=== PATIENT | male | born 1985 | race African-American/Black ===

== ENCOUNTER 2018-06-02 16:18 | Emergency (ER) | payer OTHER ==
[2018-06-02] MEDS ORDERED: Sodium Chloride 0.9% 10 ML Syringe FLUSH PRN (17:36)
[2018-06-02] MEDS ORDERED: HYDROmorphone 0.5 MG/0.5 ML Syringe IVPUSH ONE (17:36)
[2018-06-02] MEDS ORDERED: Sodium Chloride 0.9% 1,000 ML IV ONE (17:36)
--- NOTE | 2018-06-02 17:41 | EDM.PDOC ---
ED HPI GENERAL MEDICAL PROBLEM - General Chief Complaint: Respiratory Problem Stated Complaint: CHEST PAIN/SOB Time Seen by Provider: 06/02/18 17:34 Source of Information: Reports: Patient History Limitations: Reports: No Limitations - History of Present Illness INITIAL COMMENTS - FREE TEXT/NARRATIVE: Patient is a 33-year-old male presents ED complaining of chest pain, hemoptysis , shortness of breath with exertion, and cold-like symptoms for the past few days. States over the past few days he has been coughing up blood. Denies any bloody coming from his nose. He is concerned that he may have a PE. At this time although he is on Xarelto. He denies any TB exposure or known history of TB. Denies any fever, chills, recent weight loss, abdominal pain, nausea vomiting, diaphoresis, or any additional complaints. He has not had any additional testing to why he developed PE. First diagnosis of PE was 6 months ago. He has been taking his medication religiously. Of note he's also has some sinus congestion and runny nose. Denies any sore throat. He does not smoke. Alcohol use none. Recreational drug use includes marijuana. He is on narcotics for generalized body discomfort secondary to take in the Xarelto. 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 He has no history of sickle cell. Denies any swelling or tenderness to his lower extremities. No recent long travel or hospitalization. He denies any history cancer. Chest Pain Score (Numeric/FACES): 2 - Related Data Allergies Allergy/AdvReac Type Severity Reaction Status Date / Time No Known Allergies Allergy Verified 06/02/18 17:00 Home Meds: Home Meds Gabapentin [Neurontin] 06/02/18 [History] Hydrocodone/Acetaminophen [Hydrocodon-Acetaminophen 5-325] 06/02/18 [History] Rivaroxaban [Xarelto] 20 mg PO 06/02/18 [History] Past Medical History Cardiovascular History: Reports: Blood Clots/VTE/DVT Respiratory History: Reports: PE Social & Family History - Tobacco Use Smoking Status *Q: Current Every Day Smoker Years of Tobacco use: 15 Packs/Tins Daily: 0.1 ED ROS GENERAL - Review of Systems Review Of Systems: ROS reveals no pertinent complaints other than HPI. ED EXAM, GENERAL - Physical Exam Exam: See Below Exam Limited By: No Limitations General Appearance: Alert, WD/WN, No Apparent Distress Ears: Hearing Grossly Normal Nose: Normal Inspection, Normal Mucosa, No Blood Throat/Mouth: Normal Inspection, Normal Oropharynx, Normal Voice Head: Atraumatic, Normocephalic Neck: Normal Inspection, Supple, Non-Tender, Full Range of Motion Respiratory/Chest: No Respiratory Distress, Lungs Clear, Normal Breath Sounds, No Accessory Muscle Use, Other (tenderness to the anterior chest with palpation. ) Cardiovascular: Normal Peripheral Pulses, Regular Rate, Rhythm, No Murmur Peripheral Pulses: 2+: Radial (L), Radial (R) GI/Abdominal: Normal Bowel Sounds, Soft, Non-Tender, No Organomegaly, No Distention Back Exam: Normal Inspection. No: CVA Tenderness (L), CVA Tenderness (R) Extremities: Normal Inspection, Normal Range of Motion, Non-Tender, No Pedal Edema Neurological: Alert, Oriented, CN II-XII Intact, Normal Cognition, Normal Gait, No Motor/Sensory Deficits Psychiatric: Normal Affect, Normal Mood Skin Exam: Warm, Dry, Intact, Normal Color, No Rash Course - Vital Signs Last Recorded V/S: Last Vital Signs Temp 98.5 F 06/02/18 17:01 Pulse 79 06/02/18 17:01 Resp 18 06/02/18 17:01 BP 127/75 06/02/18 17:01 Pulse Ox 97 06/02/18 17:01 - Orders/Labs/Meds Orders: Active Orders 24 hr Category Date Time Status EKG Documentation Completion [RC] STAT Care 06/02/18 17:34 Active Peripheral IV Care [RC] . DIRECTED Care 06/02/18 17:36 Active Peripheral IV Insertion Adult [OM.PC] Routine Oth 06/02/18 17:36 Ordered Labs: Laboratory Tests 06/02/18 06/02/18 06/02/18 Range/Units 18:02 18:02 18:02 WBC 9.54 H (4.23-9.07) K/mm3 RBC 4.54 L (4.63-6.08) M/mm3 Hgb 14.2 (13.7-17.5) gm/L Hct 42.6 (40.1-51.0) % MCV 93.8 H (79.0-92.2) fl MCH 31.3 (25.7-32.2) pg MCHC 33.3 (32.2-35.5) g/dl RDW Std Deviation 47.4 H (35.1-43.9) fL Plt Count 281 (163-337) K/mm3 MPV 9.6 (9.4-12.3) fl Neutrophils % (Manual) 59 (40-60) % Band Neutrophils % 0 (0-10) % Lymphocytes % (Manual) 30 (20-40) % Atypical Lymphs % 0 % Monocytes % (Manual) 10 (2-10) % Eosinophils % (Manual) 1 (0.8-7.0) % Basophils % (Manual) 0 L (0.2-1.2) Platelet Estimate Adequate RBC Morph Comment Normal PT 10.9 (9.5-12.1) SECONDS INR 1.00 APTT 26 (24-31) SECONDS Sodium 141 (136-145) mEq/L Potassium 4.3 (3.5-5.1) mEq/L Chloride 107 (98-107) mEq/L Carbon Dioxide 25 (21-32) mEq/L Anion Gap 13.3 (5-15) BUN 18 (7-18) mg/dL Creatinine 1.3 (0.7-1.3) mg/dL Est Cr Clr Drug Dosing 87.05 mL/min Estimated GFR (MDRD) > 60 (>60) mL/min BUN/Creatinine Ratio 13.8 L (14-18) Glucose 94 (74-106) mg/dL Calcium 9.0 (8.5-10.1) mg/dL Total Bilirubin 0.3 (0.2-1.0) mg/dL AST 14 L (15-37) U/L ALT 31 (16-63) U/L Alkaline Phosphatase 56 (46-116) U/L Troponin I < 0.017 (0.00-0.056) ng/mL C-Reactive Protein < 0.2 (<1.0) mg/dL Total Protein 6.8 (6.4-8.2) g/dl Albumin 3.6 (3.4-5.0) g/dl Globulin 3.2 gm/dL Albumin/Globulin Ratio 1.1 (1-2) Meds: Medications Discontinued Medications Generic Name Dose Route Start Last Admin Trade Name Freq PRN Reason Stop Dose Admin Hydromorphone HCl 0.5 mg 06/02/18 17:36 06/02/18 18:06 Dilaudid IVPUSH 06/02/18 17:37 0.5 mg ONETIME ONE Administration Sodium Chloride 1,000 mls @ 250 mls/hr 06/02/18 17:36 06/02/18 18:05 Normal Saline IV 06/02/18 21:35 250 mls/hr ONETIME ONE Administration Sodium Chloride 100 mls @ 80 mls/hr 06/02/18 18:00 06/02/18 18:18 Normal Saline IV 80 mls/hr ASDIRECTED KIRK Administration Iopamidol 100 ml 06/02/18 17:54 06/02/18 18:19 Isovue-370 (76%) IV 06/02/18 17:55 100 ml ONETIME ONE Administration Sodium Chloride 10 ml 06/02/18 17:36 06/02/18 18:07 Saline Flush FLUSH 10 ml ASDIRECTED PRN Administration Keep Vein Open - Re-Assessments/Exams Free Text/Narrative Re-Assessment/Exam: Vital signs are stable. Patient is not hypoxic. He does carry a history of PE and is currently on Xarelto. Complains of shortness of breath with exertion, chest pain, and hemoptysis. IV will be established with Dilaudid 0.5 mg IVP. Normal saline IV fluids and been started as well. Initial labs will include CBC, chem 14, CRP, click studies , troponin. EKG has been ordered. CTA of the chest PE protocol has been ordered as well. 06/02/18 19:13 Labs reviewed. CBC was essentially normal. Chemistry panel was essentially normal as well. Troponin less than 0.017. CRP 0.2. EKG indicated sinus rhythm at a rate of 74. Diffuse T-wave flattening repolarization abnormalities in V3 and V6. T-wave inversion in leads 3 and aVF cannot rule out ischemia. CTA of the chest impression: No findings of pulmonary embolism. Nothing acute is appreciated on CT study of the chest performed as a pulmonary angiogram protocol. Patient's vital signs have remained stable throughout his ED visit. I discussed return precautions with the patient. He will establish medical care here locally and be evaluated in the next 3-5 days. Patient had no further questions or concern and agreed with plan. Departure - Departure Time of Disposition: 19:14 Disposition: Home, Self-Care 01 Condition: Good Clinical Impression: Hemoptysis, unspecified, SOB (shortness of breath) on exertion - Discharge Information Instructions: Hemoptysis, Shortness of Breath, Adult Referrals: PCP,None [Primary Care Provider] - Forms: ED Department Discharge, ED Return to Work/School Form Additional Instructions: Please establish medical care with a local primary care provider. Schedule a appointment to be evaluated in next 3-5 days. CTA of the chest came back negative with no findings concerning for a PE. Continue taking all your home medications as prescribed. Return to the ED if you develop any new or worsening symptoms. No driving this evening since receiving a sedative medication. - My Orders Last 24 Hours: My Active Orders 06/02/18 17:34 EKG Documentation Completion [RC] STAT 06/02/18 17:36 Peripheral IV Care [RC] . DIRECTED Peripheral IV Insertion Adult [OM.PC] Routine - Assessment/Plan Last 24 Hours: My Active Orders 06/02/18 17:34 EKG Documentation Completion [RC] STAT 06/02/18 17:36 Peripheral IV Care [RC] . DIRECTED Peripheral IV Insertion Adult [OM.PC] Routine
[2018-06-02] MEDS ORDERED: Iopamidol 755 Mg/ML 200 ML Bottle IV ONE (17:54)
[2018-06-02] MEDS ORDERED: Sodium Chloride 0.9% 100 ML IV SCH (18:00)
--- NOTE | 2018-06-02 18:45 | CT ---
CT chest Technique: Multiple axial sections through the chest were obtained. Intravenous contrast was utilized. Study has been performed as a pulmonary angiogram protocol. Findings: Pulmonary arteries are well opacified. No filling defects are seen to indicate a pulmonary embolism. Mediastinum and hilar regions show no adenopathy or mass. No pericardial effusion is seen. Small portion of the visualized upper abdominal structures are within normal limits. Lungs are clear. No acute parenchymal densities are seen. No pleural effusions are seen. Bone window settings were reviewed which shows no acute osseous abnormality. Impression: 1. No findings of pulmonary embolism. 2. Nothing acute is appreciated on CT study of the chest performed as a pulmonary angiogram protocol. Diagnostic code #1
== END 2018-06-02 19:25 | disposition home or self-care (01) ==
LOC: JD.ED 16:18
DX: R04.2 Hemoptysis (principal); R06.02 Shortness of breath; F17.210 Nicotine dependence, cigarettes, uncomplicated; Z79.01 Long term (current) use of anticoagulants
CPT/HCPCS: 36415; 71275; 80053; 84484; 85007; 85027; 85610; 85730; 86140; 93005; 96361; 96374; 99284; J1170; J7030; J7040; Q9967

== ENCOUNTER 2018-07-12 19:32 | Emergency (ER) | payer SELFPAY ==
--- NOTE | 2018-07-12 20:29 | EDM.PDOC ---
ED HPI GENERAL MEDICAL PROBLEM - General Chief Complaint: Neck Problem Stated Complaint: PAIN IN NECK SPINE AND LEFT ARM TUMOR IN NECK Time Seen by Provider: 07/12/18 20:05 Source of Information: Reports: Patient History Limitations: Reports: No Limitations - History of Present Illness INITIAL COMMENTS - FREE TEXT/NARRATIVE: Yanleis is a 33-year-old male. He comes tonight because he is having pain in his neck and down his left arm. 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 When I ask him about this tumor he says he's had it for 16 or 17 years which means it started as a teenager and he's had no significant workup. All he states is that it is benign but he has no idea what it is called. To confuse the issue he has a history of pulmonary emboli and this was at least a year ago and he was seen 3 months ago because he was still on Xeralto and he was coughing up some blood at the time. He had a CT angiogram here in this ER at the time that was negative. Getting back to his tumor he says it flares up every so often and normally he need something to kind of eased the pain up but it doesn't really stop him or keep him from working. The patient is requesting something to ease up the pain. He denies any dysfunction of his neck or his left upper extremity despite the pain. He denies any other acute symptoms. Neck Pain Score (Numeric/FACES): 10 - Related Data Allergies Allergy/AdvReac Type Severity Reaction Status Date / Time No Known Allergies Allergy Verified 07/12/18 19:54 Home Meds: Home Meds Gabapentin [Neurontin] 1 dose PO ASDIRECTED PRN 06/02/18 [History] Naproxen 375 mg PO Q8H PRN #20 tablet 07/12/18 [Rx] Past Medical History Cardiovascular History: Reports: Blood Clots/VTE/DVT Respiratory History: Reports: PE Social & Family History - Tobacco Use Smoking Status *Q: Current Every Day Smoker Years of Tobacco use: 20 Packs/Tins Daily: 0.5 - Caffeine Use Caffeine Use: Reports: Coffee, Soda, Tea ED ROS GENERAL - Review of Systems Review Of Systems: See Below Constitutional: Denies: Fever, Chills HEENT: Reports: No Symptoms Respiratory: Reports: No Symptoms Cardiovascular: Reports: No Symptoms Endocrine: Reports: No Symptoms GI/Abdominal: Reports: No Symptoms : Reports: No Symptoms Musculoskeletal: Reports: Other (As per history of present illness) Skin: Reports: No Symptoms Neurological: Reports: Other (As per history of present illness) Psychiatric: Reports: No Symptoms Hematologic/Lymphatic: Reports: No Symptoms ED EXAM, UPPER BACK/NECK PAIN - Physical Exam Exam: See Below Exam Limited By: No Limitations General Appearance: Alert, WD/WN, No Apparent Distress, Other (Patient states that his pain is 10/10 as he lays on the bed with his arms over his head, gesturing with his left arm as he describes was going on and then sitting up in bed with no difficulty and in obvious no distress) Eye Exam: Bilateral Eye: Normal Inspection Ears Exam: Normal External Exam Nose Exam: Normal Inspection Throat/Mouth Exam: Normal Inspection, Normal Lips, Normal Voice, No Airway Compromise Head Exam: Normocephalic Neck Exam: Non-Tender, Full Range of Motion, Normal Alignment, Normal Inspection , Other (He points to his neck which is in the lower cervical upper thoracic area and points to a bump stating this is the tumor, when I palpated he doesn't act like it is painful in fact he doesn't act like anything is going on, it feels like a lipoma but I don't feel any hard object or lump to suggest a tumor other than a fatty tumor. He has full range of motion of his neck.). No: Muscle Spasm Cardiovascular/Respiratory: Regular Rate, Rhythm. No: Murmur Back Exam: Normal Inspection, Full Range of Motion Extremities: Normal Inspection, Normal Range of Motion Neurologic: No Motor/Sensory Deficits, Other (He states he gets numbness and tingling in his ring and little finger of the left hand but he denies any dysfunction or decrease in strength in that left upper extremity, he is a somewhat muscular individual and there is no asymmetry in his muscular development compared to the right arm.) Psychiatric: Normal Affect, Normal Mood Skin Exam: Normal Color, Warm/Dry Course - Vital Signs Last Recorded V/S: Last Vital Signs Temp 97.4 F 07/12/18 19:53 Pulse 85 07/12/18 19:53 Resp 18 07/12/18 19:53 BP 138/85 07/12/18 19:53 Pulse Ox 95 07/12/18 19:53 - Re-Assessments/Exams Free Text/Narrative Re-Assessment/Exam: 07/12/18 20:32 I looked the patient up under the [place] prescription monitoring and looked in [place] and he did until March 2018 received for about 5 months 60 hydrocodone a month. He has not received any additional hydrocodone since he moved to [place]. I explained to the patient that I do not give narcotics for this kind of pain but I'll be happy to give him a shot to help and prescribed some medication that hopefully will help with these symptoms. The patient states he is not looking for narcotics and I think that's good. 07/12/18 20:34 I am going to refer him to a family physician here in town so they can really figure out what this tumor might be or at least what his history might be. Departure - Departure Time of Disposition: 20:49 Disposition: Home, Self-Care 01 Condition: Good Clinical Impression: Cervical radiculopathy at C8, Cervical pain - Discharge Information *PRESCRIPTION DRUG MONITORING PROGRAM REVIEWED*: Yes *COPY OF PRESCRIPTION DRUG MONITORING REPORT IN PATIENT JIMBO: Yes Prescriptions: Naproxen 375 mg PO Q8H PRN #20 tablet PRN Reason: Pain Instructions: How to Clean a Tracheostomy Tube, Adult, [id number] Referrals: Thao Matos PA [Physician Plastic Tile Setter] - Additional Instructions: Follow-up with the provider that I have suggested for workup of this tumor in your neck so we can determine what it is and whether it's actually pinching nerves in your neck or if you have a possible herniated disc in your neck causing the symptoms. Take the medication for pain as needed and make sure you take food with it, if the symptoms markedly worsen the sure to follow up with that provider, return to the ER if needed
[2018-07-12] MEDS ORDERED: Ketorolac 60 MG/2 ML SDV IM ONE (20:48)
== END 2018-07-12 21:05 | disposition home or self-care (01) ==
LOC: JD.ED 19:32
DX: M54.12 Radiculopathy, cervical region (principal); F17.210 Nicotine dependence, cigarettes, uncomplicated
CPT/HCPCS: 99283; J1885; 99284

== ENCOUNTER 2018-07-14 15:34 | Emergency (ER) | payer SELFPAY ==
[2018-07-14] MEDS: Sodium Chloride 0.9% 10 ML Syringe FLUSH PRN ×2 (16:28→16:44)
[2018-07-14] MEDS ORDERED: Iopamidol 755 Mg/ML 200 ML Bottle IV ONE (16:33)
--- NOTE | 2018-07-14 17:01 | CT ---
CT neck Technique: Multiple axial sections were obtained through the neck. Intravenous contrast was utilized. Comparison: No previous neck study. Findings: Visualized sinuses are clear. Parotid salivary glands and submandibular salivary glands are within normal limits. No adenopathy is seen. Paravertebral soft tissues are unremarkable. Prevertebral soft tissues are within normal limits. Slight disc space narrowing is noted within cervical spine at C4-5, C5-6 and C6-7. No neck mass is identified. Slight increased density within the subcutaneous fat is noted within the upper back which is most likely incidental. Visualized lung apices are clear. Thyroid gland shows no discrete nodule. Impression: 1. Slight disc space narrowing within the cervical spine. 2. Mild increased density within the subcutaneous fat of the upper back which is most likely incidental. 3. CT study of the neck is otherwise unremarkable. No neck mass is seen. Diagnostic code #2
--- NOTE | 2018-07-14 17:13 | EDM.PDOC ---
ED HPI GENERAL MEDICAL PROBLEM - General Chief Complaint: Neck Problem Stated Complaint: NECK PAIN Time Seen by Provider: 07/14/18 16:08 Source of Information: Reports: Patient History Limitations: Reports: No Limitations - History of Present Illness INITIAL COMMENTS - FREE TEXT/NARRATIVE: The patient presents with lower neck pain. 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 This has been around for 15 years but worse the past 4 days. He denies any injury. He says he had some pain shooting down his left arm and he had some tingling in his arms this morning when he woke up. He has no fever, chills, cough, congestion or runny nose. He has no chest pain or shortness of breath. He has no abdominal pain, nausea or vomiting. He has no other medical problems. He was here a few days ago for the same and given naprosyn and gabapentin. Onset: Gradual Duration: Day(s): (4) Location: Reports: Neck Quality: Reports: Sharp Severity: Moderate Improves with: Reports: None Worsens with: Reports: None Associated Symptoms: Reports: No Other Symptoms Bilateral Neck Pain Score (Numeric/FACES): 10 - Related Data Allergies Allergy/AdvReac Type Severity Reaction Status Date / Time No Known Allergies Allergy Verified 07/14/18 15:46 Home Meds: Home Meds Gabapentin [Neurontin] 1 dose PO ASDIRECTED PRN 06/02/18 [History] Naproxen 375 mg PO Q8H PRN #20 tablet 07/12/18 [Rx] Hydrocodone/Acetaminophen [Hydrocodon-Acetaminophen 5-325] 1 - 2 each PO Q6HR PRN #6 tablet 07/14/18 [Rx] Past Medical History Cardiovascular History: Reports: Blood Clots/VTE/DVT Other Cardiovascular History: bilaterals lungs, groin, L calf blood clots Respiratory History: Reports: PE Musculoskeletal History: Reports: Neck Pain, Chronic, Other (See Below) Other Musculoskeletal History: fatty tumor on neck - Infectious Disease History Infectious Disease History: Reports: Chicken Pox Social & Family History - Family History Family Medical History: Noncontributory - Tobacco Use Smoking Status *Q: Current Every Day Smoker Years of Tobacco use: 18 Packs/Tins Daily: 0.5 - Caffeine Use Caffeine Use: Reports: Tea - Recreational Drug Use Recreational Drug Use: Yes Recreational Drug Type: Reports: Marijuana/Hashish Recreational Drug Use Frequency: Daily ED ROS GENERAL - Review of Systems Review Of Systems: See Below Constitutional: Reports: No Symptoms HEENT: Reports: No Symptoms Respiratory: Reports: No Symptoms Cardiovascular: Reports: No Symptoms Endocrine: Reports: No Symptoms GI/Abdominal: Reports: No Symptoms : Reports: No Symptoms Musculoskeletal: Reports: Neck Pain Skin: Reports: No Symptoms Neurological: Reports: No Symptoms ED EXAM, UPPER BACK/NECK PAIN - Physical Exam Exam: See Below Exam Limited By: No Limitations General Appearance: Alert, No Apparent Distress Ears Exam: Normal External Exam Nose Exam: Normal Inspection Head Exam: Atraumatic, Normocephalic Neck Exam: Other (Pain upon palpation to the base of the posterior neck. Edema to C7 level. ) Cardiovascular/Respiratory: Regular Rate, Rhythm, No M/R/G, Normal Breath Sounds , No Respiratory Distress GI/Abdominal: Soft, Non-Tender, No Organomegaly, No Mass Back Exam: Normal Inspection Extremities: Normal Inspection Neurologic: No Motor/Sensory Deficits, Alert, Normal Mood/Affect, Oriented x 3 Course - Vital Signs Last Recorded V/S: Last Vital Signs Temp 98.4 F 07/14/18 15:42 Pulse 78 07/14/18 15:42 Resp 19 07/14/18 15:42 BP 160/83 H 07/14/18 15:42 Pulse Ox 97 07/14/18 15:42 - Orders/Labs/Meds Orders: Active Orders 24 hr Category Date Time Status Peripheral IV Care [RC] . DIRECTED Care 07/14/18 16:13 Active Sodium Chloride 0.9% [Saline Flush] Med 07/14/18 16:13 Active 10 ml FLUSH ASDIRECTED PRN Peripheral IV Insertion Adult [OM.PC] Routine Oth 07/14/18 16:13 Ordered Medication Orders Sodium Chloride (Saline Flush) 10 ml FLUSH ASDIRECTED PRN PRN Reason: Keep Vein Open Last Admin: 07/14/18 16:44 Dose: 10 ml Admin: 07/14/18 16:28 Dose: 10 ml Meds: Medications Generic Name Dose Route Start Last Admin Trade Name Freq PRN Reason Stop Dose Admin Sodium Chloride 10 ml 07/14/18 16:13 07/14/18 16:44 Saline Flush FLUSH 10 ml ASDIRECTED PRN Administration Keep Vein Open Discontinued Medications Generic Name Dose Route Start Last Admin Trade Name Norbertoq PRN Reason Stop Dose Admin Iopamidol 80 ml 07/14/18 16:33 07/14/18 16:45 Isovue-370 (76%) IV 07/14/18 16:34 80 ml ONETIME ONE Administration Methylprednisolone Sodium Succinate 125 mg 07/14/18 17:24 Solu-Medrol IVPUSH 07/14/18 17:25 ONETIME ONE - Re-Assessments/Exams Free Text/Narrative Re-Assessment/Exam: 07/14/18 17:15 I ordered an IV saline lock and a CT soft tissue neck. The CT shows slight disc space narrowing within the cervical spine. Mild increased density within the subcutaneous fat of the upper back which is most likely incidental. CT study of the neck is otherwise unremarkable. No neck mass is seen. 07/14/18 17:26 I will give him solu-medrol 125mg IV and give him a few hydrocodone. Departure - Departure Time of Disposition: 17:30 Disposition: Home, Self-Care 01 Condition: Good Clinical Impression: Neck pain - Discharge Information *PRESCRIPTION DRUG MONITORING PROGRAM REVIEWED*: No *COPY OF PRESCRIPTION DRUG MONITORING REPORT IN PATIENT JIMBO: No Prescriptions: Hydrocodone/Acetaminophen [Hydrocodon-Acetaminophen 5-325] 1 - 2 each PO Q6HR PRN #6 tablet PRN Reason: Pain Referrals: PCP,None [Primary Care Provider] - Alice Escalona PA-C [Physician Welder] - 1 Week Forms: ED Department Discharge Additional Instructions: Take the medication as prescribed. If that does not help, try the hydrocodone. Use ice or heat, which ever one feels better. Please return if you are worse. - My Orders Last 24 Hours: My Active Orders 07/14/18 16:13 Peripheral IV Care [RC] . DIRECTED Sodium Chloride 0.9% [Saline Flush] 10 ml FLUSH ASDIRECTED PRN Peripheral IV Insertion Adult [OM.PC] Routine - Assessment/Plan Last 24 Hours: My Active Orders 07/14/18 16:13 Peripheral IV Care [RC] . DIRECTED Sodium Chloride 0.9% [Saline Flush] 10 ml FLUSH ASDIRECTED PRN Peripheral IV Insertion Adult [OM.PC] Routine
[2018-07-14] MEDS ORDERED: methylPREDNISolone Sodium Succinate 125 MG/2 ML SDV IVPUSH ONE (17:24)
== END 2018-07-14 17:39 | disposition home or self-care (01) ==
LOC: JD.ED 15:34
DX: M54.2 Cervicalgia (principal); F17.210 Nicotine dependence, cigarettes, uncomplicated; Z79.899 Other long term (current) drug therapy
CPT/HCPCS: 70491; 96374; 99283; J2930; Q9967; 99284